=== PATIENT | female | born 1940 | race Caucasian/White ===

== ENCOUNTER 2017-05-17 17:41 | Emergency (ER) | payer MEDICARE, OTHER ==
[~2017-05-17] VITALS: Ht 157.5 cm; Wt 50.0 kg
[2017-05-17 17:49] VITALS: BP 149/79
[2017-05-17] MEDS ORDERED: METO-93 PO (18:16)
[2017-05-17] MEDS ORDERED: KETO5DRO70 OP (18:16)
[2017-05-17] MEDS ORDERED: TRAV5DRO OP (18:16)
[2017-05-17] MEDS ORDERED: OMEP20TA62 PO (18:16)
[2017-05-17] MEDS ORDERED: ETAN50DI2 SQ (18:16)
[2017-05-17] MEDS ORDERED: LEVO175T2 PO (18:16)
[2017-05-17] MEDS ORDERED: CHLO4TAB22 PO (18:16)
[2017-05-17] MEDS ORDERED: AMLO5TAB2 PO (18:16)
[2017-05-17] MEDS ORDERED: HYDR-3240 PO (18:16)
[2017-05-17] MEDS ORDERED: LOSA100T6 PO (18:16)
== END 2017-05-17 18:18 | disposition home or self-care (01) ==
LOC: ED 18:10
DX: M25.531 Pain in right wrist (principal); I10 Essential (primary) hypertension; E03.9 Hypothyroidism, unspecified; M06.9 Rheumatoid arthritis, unspecified
CPT/HCPCS: 99281

== ENCOUNTER 2019-05-12 15:05 | Emergency (ER) | payer MEDICARE ==
[~2019-05-12] VITALS: Ht 157.5 cm; Wt 46.0 kg
[~2019-05-12 15:05] MED LIST: AMLO-150 PO; CHLO4TAB22 PO; ETAN50DI2 SQ; HYDR-3240 PO; KETO5DRO70 OP; LEVO175T2 PO; LOSA100T14 PO; METO-93 PO; OMEP20TA62 PO; TRAV5DRO OP
--- NOTE | 2019-05-12 15:54 | NUR ---
novelty worker: Pt wheeled to ED room 35 from lobby at this time
[2019-05-12 17:16] VITALS: BP 169/60
--- NOTE | 2019-05-12 17:16 | NUR ---
BREAK RN: PT SITTING ON [facility] OF [facility] AWAKE & COMFORTABLE, RESPONDS APPROP TO STAFF, DR MOORE & FAMILY AT , COMFORT MEASURES PROVIDED, CALL LIGHT WITHIN REACH.
[2019-05-12 17:24] LABS: BASOPHILS # (AUTO) 0.05 x10^3/uL (0-0.1); BASOPHILS % (AUTO) 1 % (0-1); EOSINOPHILS # (AUTO) 0.27 x10^3/uL (0-0.4); EOSINOPHILS % (AUTO) 6 % (1-7); LYMPHOCYTES # (AUTO) 1.08 x10^3/uL (1-3.4); LYMPHOCYTES % (AUTO) 23 % (22-44); MD NO; MEAN CORPUSCULAR HEMOGLOBIN 28.3 pg (27.0-34.8); MEAN CORPUSCULAR HGB CONC 33.6 g/dL (32.4-35.8); MEAN CORPUSCULAR VOLUME 84.2 fL (80-100); MONOCYTES # (AUTO) 0.42 x10^3/uL (0.2-0.8); MONOCYTES % (AUTO) 9 % (2-9); NEUTROPHILS # (AUTO) 2.93 x10^3/uL (1.8-6.8); NEUTROPHILS % (AUTO) 62 % (42-75); PLATELET COUNT 318 x10^3/uL (130-400); RED BLOOD COUNT 4.34 x10^6/uL (3.82-5.3); RED CELL DISTRIBUTION WIDTH 14.7 % (9.6-15.2)
[2019-05-12 17:35] LABS: ANION GAP 4 mmol/L (5-15); CALCIUM 8.6 mg/dL (8.5-10.1); CHLORIDE 105 mmol/L (98-107); CREATININE 0.58 mg/dL (0.55-1.02)
--- NOTE | 2019-05-12 17:48 | NUR ---
REPORT RECEIVED FROM JOVANA YOUNG. ASSUMED PT CARE
--- NOTE | 2019-05-12 17:53 | NUR ---
PRECEPTOR NOTE: CALL MADE TO RADHA [place] FOR MD ORDER FOR HOME HEALTH EVAL AND TX. [place] TO SEE PT.
== END 2019-05-12 18:50 | disposition home or self-care (01) ==
LOC: ED 17:01
DX: L89.221 Pressure ulcer of left hip, stage 1 (principal); R60.0 Localized edema; I10 Essential (primary) hypertension; E03.9 Hypothyroidism, unspecified; M06.9 Rheumatoid arthritis, unspecified
CPT/HCPCS: 36415; 80048; 82040; 83880; 85025; 99283